=== PATIENT | female | born 2000 | race Two or more races ===

== ENCOUNTER 2024-05-08 17:21 | Outpatient (CLI) | payer OTHER ==
[~2024-05-08] VITALS: Ht 152.4 cm; Wt 49.4 kg
[2024-05-08 16:53] VITALS: BP 112/75
[~2024-05-08 17:21] MED LIST: METOCLOPRAMIDE10 MG PO; PEPCID AC20 MG PO; PROTONIX40 MG PO
[2024-05-08] MEDS ORDERED: PRENATAL TABLE1 EAC1 PO (17:33)
[2024-05-08] MEDS ORDERED: IRON325 MG PO (17:33)
[2024-05-08] MEDS ORDERED: RINGERS SOLUTION,LACTATED 1,000 ML IV SCH (17:45)
[2024-05-08 18:00] LABS: URINE APPEARANCE Clear; URINE BILIRRUBIN Negative (NEGATIVE); URINE BLOOD Negative; URINE COLOR Yellow; URINE GLUCOSE Negative (NEGATIVE); URINE KETONE Negative (NEGATIVE); URINE LEUKOCYTE Trace; URINE NITRATE Negative; URINE PROTEIN Negative (NEGATIVE); URINE UROBILINOGEN 0.2 E.U./dl
[2024-05-08 18:02] LABS: URINE BACTERIA 1830.6 uL (0.0-1933); URINE EPITHELIAL CELLS 25.9 uL (0.0-38.8); URINE RBC 2.9 uL (0.0-20.8); URINE WBC 12.2 uL (0.0-23.2)
[2024-05-08 18:05] LABS: URINE CAST 0.45 uL (0.0-1.40)
[2024-05-08 18:07] LABS: HEMATOCRIT 32.7 % (36.0-45.00); MEAN CELL VOLUME 88.6 fL (80.00-100.00); MEAN CORPUSCULAR HEMOGLOBIN 29.7 pg (27.00-32.0); MEAN CORPUSCULAR HGB CONC 33.5 g/dl (32.0-36.0); PLATELET COUNT 190 K/uL (150-450); RED BLOOD COUNT 3.69 M/uL (4.00-6.00)
[2024-05-08 18:08] LABS: RED CELL DISTRIBUTION WIDTH 21.4 % (11.5-14.5)
[2024-05-08 18:15] LABS: INR 0.94; PARTIAL THROMBOPLASTIN TIME 29.8 SECONDS (22.0-34.0); PROTHROMBIN TIME 10.3 SECONDS (9.0-11.5)
[2024-05-08 18:36] LABS: ALBUMIN 2.9 gm/dL (3.4-5.0); BILIRUBIN TOTAL 0.22 mg/dL (0.3-1.2); CREATININE SERUM 0.48 mg/dL (0.55-1.02); GFR 157.58; GLOBULINA 3.5 G/DL (2.4-3.5); POTASSIUM 3.97 mEq/L (3.5-5.1); TOTAL PROTEIN 6.4 gm/dL (6.4-8.2)
[2024-05-08 20:42] VITALS: BP 103/61
[2024-05-08 23:26] VITALS: BP 126/74
[2024-05-09] MEDS ORDERED: TERBUTALINE SULFATE 1 MG/ML AMPUL SUBCUTANEO SCH (01:30)
[2024-05-09 03:35] VITALS: BP 97/59
[2024-05-09 07:26] VITALS: BP 121/75; O2SAT 99
[2024-05-09 08:51] VITALS: BP 121/75
== END 2024-05-09 10:38 | disposition home or self-care (01) ==
LOC: OBS/DEL 17:21
PROVIDERS: Obstetrics & Gynecology; ATTEND Specialist
DX: O99.013 Anemia complicating pregnancy, third trimester (principal); Z3A.35 35 weeks gestation of pregnancy

== ENCOUNTER 2024-06-04 00:51 | Outpatient (CLI) | payer OTHER ==
[2024-06-03 23:56] VITALS: BP 124/84
[~2024-06-04 00:51] MED LIST changes: +IRON325 MG PO; +PRENATAL TABLE1 EAC1 PO
[2024-06-04] MEDS ORDERED: RINGERS SOLUTION,LACTATED 1,000 ML IV SCH (01:30)
[2024-06-04 02:46] LABS: PH,URINE 6.5 (5.0-8.0); URINE APPEARANCE Clear; URINE BILIRRUBIN Negative (NEGATIVE); URINE BLOOD Trace; URINE COLOR Yellow; URINE GLUCOSE Negative (NEGATIVE); URINE KETONE Negative (NEGATIVE); URINE LEUKOCYTE Negative; URINE NITRATE Negative; URINE PROTEIN Negative (NEGATIVE)
[2024-06-04 02:49] LABS: URINE BACTERIA 74.2 uL (0.0-1933); URINE EPITHELIAL CELLS 5.2 uL (0.0-38.8); URINE WBC 5.2 uL (0.0-23.2)
[2024-06-04 03:05] LABS: INR < 0.93; PARTIAL THROMBOPLASTIN TIME 29.9 SECONDS (22.0-34.0); PROTHROMBIN TIME 9.9 SECONDS (9.0-11.5)
[2024-06-04 03:08] LABS: ALBUMIN 3.1 gm/dL (3.4-5.0); BILIRUBIN TOTAL 0.33 mg/dL (0.3-1.2); CALCIUM 9.6 mg/dL (8.5-10.1); CREATININE SERUM 0.54 mg/dL (0.55-1.02); GFR 137.55; GLOBULINA 3.6 G/DL (2.4-3.5); POTASSIUM 4.61 mEq/L (3.5-5.1); TOTAL PROTEIN 6.7 gm/dL (6.4-8.2)
[2024-06-04 03:21] LABS: HEMATOCRIT 37.9 % (36.0-45.00); HEMOGLOBIN 13.1 g/dL (12.0-15.00); MEAN CELL VOLUME 89.3 fL (80.00-100.00); MEAN CORPUSCULAR HEMOGLOBIN 30.8 pg (27.00-32.0); MEAN CORPUSCULAR HGB CONC 34.5 g/dl (32.0-36.0); PLATELET COUNT 172 K/uL (150-450); RED BLOOD COUNT 4.25 M/uL (4.00-6.00); RED CELL DISTRIBUTION WIDTH 21.4 % (11.5-14.5)
[2024-06-04 03:27] LABS: URINE RBC 0.4 uL (0.0-20.8)
[2024-06-04 03:34] VITALS: BP 110/74
[2024-06-04 07:37] VITALS: BP 123/72
[2024-06-04 11:40] VITALS: BP 114/78
[2024-06-04 15:17] VITALS: BP 120/75
[2024-06-04] MEDS ORDERED: FLUCONAZOLE 150 MG TABLET PO ONE (17:00)
[2024-06-04 17:53] VITALS: BP 115/72
== END 2024-06-04 18:01 | disposition home or self-care (01) ==
LOC: OBS/DEL 00:51
PROVIDERS: ATTEND Specialist
DX: O26.893 Other specified pregnancy related conditions, third trimester (principal); Z3A.38 38 weeks gestation of pregnancy

== ENCOUNTER 2024-06-06 13:53 | Inpatient (IN) | payer OTHER ==
[2024-06-06] VITALS (9 sets, daily range): BP systolic 112–138; BP diastolic 65–86
[~2024-06-06] VITALS: Ht 152.4 cm; Wt 50.8 kg
[2024-06-06] MEDS ORDERED: OXYTOCIN 500 ML IV SCH (14:30)
[2024-06-06] MEDS ORDERED: ERYTHROMYCIN BASE OPHT 1GM EACH TUBE OP ONE (20:00)
[2024-06-06] MEDS ORDERED: OXYTOCIN 50,000 ML IV SCH (20:00)
[2024-06-06] MEDS ORDERED: LIDOCAINE HCL 1% 10ML VIAL IJ ONE (20:00)
[2024-06-06] MEDS ORDERED: ACETAMINOPHEN 500 MG GEL..CAP PO PRN (21:15)
[2024-06-07] VITALS: BP 110/76
[2024-06-07 08:21] VITALS: BP 128/80
[2024-06-07 16:08] VITALS: BP 100/60
[2024-06-08 00:32] VITALS: BP 117/79
[2024-06-08 08:05] VITALS: BP 120/80
== END 2024-06-08 15:22 | disposition home or self-care (01) | DRG 807 ==
LOC: LDR 13:53 → OB/GYN 13:53
PROVIDERS: ADMIT Specialist; ATTEND Specialist
PROC: 10E0XZZ Delivery of Products of Conception, External Approach (ICD-10-PCS; principal; 2024-06-06)
PROC: 0KQM0ZZ Repair Perineum Muscle, Open Approach (ICD-10-PCS; 2024-06-06)
PROC: 4A1HXCZ Monitoring of Products of Conception, Cardiac Rate, External Approach (ICD-10-PCS; 2024-06-06)
DX: O70.1 Second degree perineal laceration during delivery (principal); Z37.0 Single live birth; Z3A.39 39 weeks gestation of pregnancy; Z20.822 Contact with and (suspected) exposure to COVID-19